=== PATIENT | female | born 1965 | race Caucasian/White ===

== ENCOUNTER 2017-11-22 02:40 | Inpatient (IN) ==
[2017-11-22] MEDS ORDERED: ONDANSETRON HCL/PF 2 MG/ML VIAL IV ONE ×2 (04:55→10:47)
[2017-11-22] MEDS ORDERED: DIATRIZOATE MEGLUMINE, SODIUM 30 ML BTL PO ONE (04:55)
[2017-11-22] MEDS ORDERED: ONDANSETRON HCL/PF 2 MG/ML VIAL ONE (04:57)
[2017-11-22] MEDS ORDERED: BUTORPHANOL TARTRATE 2 MG/ML VIAL IV ONE (05:23)
--- NOTE | 2017-11-22 05:31 | ERNOTE ---
<Mahesh Gutierrez - Last Filed: 11/22/17 08:43> GI Bleeding/Rectal Pain ER Presenting Symptoms: vomiting blood Time Seen by Provider: 11/22/17 02:50 Source: patient Exam Limitations: no limitations Immunizations: IMMUNIZATION HX Immunizations Up to Date Yes Allergies/Adverse Reactions: Allergies morphine Allergy (Verified 11/22/17 04:11) sertraline [From Zoloft] Allergy (Verified 11/22/17 04:11) Home Medications: HOME MEDICATIONS FLUoxetine HCL [Prozac] 80 mg PO DAILY 11/22/17 [Last Taken Unknown] LORazepam [Ativan] 1 mg PO HS PRN 11/22/17 [Last Taken Unknown] Lisinopril/Hydrochlorothiazide [Lisinopril-Hctz 20-25 mg Tab] 1 tab PO DAILY 10/05 [Last Taken Unknown] Metoprolol Succinate 50 mg PO DAILY 11/22/17 [Last Taken Unknown] Omeprazole 20 mg PO DAILY 11/22/17 [Last Taken Unknown] Narrative: Pt transferred here from [facility] for GI bleed and hypotension. Upon arrival pt is normotensive and has RUQ pain, WBC 19,000 and elevated BUN and Cr. Timing: intermittent Quality/Severity: Present: moderate Nausea/Vomiting: Present: coffee grounds Abdominal Pain: Present: RUQ Rectal Bleeding: Present: none Prior Treament: Reports: recently seen, treated by physician Review of Systems - Review of Systems Constitutional: Absent: recent illness, fever Respiratory: Absent: shortness of breath Cardiology: Absent: chest pain Gastrointestinal/Abdominal: Present: See HPI. Absent: diarrhea, constipation Genitourinary: Present: decreased urinary output Musculoskeletal: Absent: back pain, muscle pain Endocrine: Absent: excessive sweating, flushing Hematologic/Lymphatic: Absent: easy bruising, easy bleeding Medical History (Last Reviewed 11/22/17 @ 05:31 by Mahesh Gutierrez DO) Anxiety Depression GERD (gastroesophageal reflux disease) Hypertension Surgical History: Surgical History (Last Reviewed 11/22/17 @ 05:31 by Mahesh Gutierrez DO) H/O: hysterectomy Hx of adenoidectomy Hx of tonsillectomy Social History: Smoking Status Never smoker Alcohol Use sober Physical Exam - Physical Exam General Appearance: Present: wd/wn, alert, mild distress Head Exam: Present: normal inspection, no evidence of injury Ears, Nose, Throat: Present: normal ENT inspection Neck: Present: normal inspection, nontender, supple Respiratory: Present: no respiratory distress, normal breath sounds, lungs clear Cardiovascular/Chest: Present: regular rate, rhythm, no murmur Gastrointestinal/Abdominal: Present: normal bowel sounds, tenderness - RUQ and epigastric Extremity Exam: Present: non-tender Neurological Exam: Present: alert, oriented, normal mood/affect, no motor/ sensory deficits Skin Exam: Present: normal color, warm/dry ED Progress - Results and Orders Patient's Lab Results:: I have reviewed the patient's lab results. Results and Orders: From [place]; WBC 19.2 k, BUN 49, Cr 4.4 otherwise normal - Vital Signs Patient's Vital Signs:: I have reviewed the patient's vital signs. Vital Signs: Vital Signs 11/22/17 02:41 11/22/17 03:01 11/22/17 03:30 Temperature 36.6 C Pulse Rate 91 88 87 Respiratory Rate 15 14 16 Blood Pressure 119/64 110/68 117/81 O2 Sat by Pulse Oximetry 99 100 99 11/22/17 04:01 Temperature Pulse Rate 85 Respiratory Rate 14 Blood Pressure 121/64 O2 Sat by Pulse Oximetry 99 - Progress/Reassessment Chief Complaint: GI Bleed Progress Note-Subjective: 11/22/17 04:59 Due to code blue and other patients I quickly saw the patient upon arrival but was not able to review the chart from [place] initially. As I reviewed the chart and further examined the patient I felt that the patient should be further evaluated by CT. Due to elevated BUN/Cr I will do CT without IV contrast/ with oral contrast only. 11/22/17 08:[address] Ku and he wants labs rechecked and to speak with Dr. Jerez about the admit and call him back. I will sign over to Dr. Ott - Transfer of Care Physician Sign Out: Mahesh Gutierrez Receiving Physician: Joseph Ott Pending Results: Labs, Physician/consult arrival Expected Disposition: Admit Departure Clinical Impression: Gastrointestinal bleeding Qualifiers: GI bleed type/associated pathology: gastrointestinal hemorrhage with hematemesis Qualified Code(s): K92.0 - Hematemesis - Departure Disposition: Still a patient Condition: Fair Referrals: Nikita Jerez MD [Staff Physician] - <VasquezJoseph turner - Last Filed: 11/22/17 09:55> GI Bleeding/Rectal Pain ER Immunizations: IMMUNIZATION HX Immunizations Up to Date Yes Medical History (Last Reviewed 11/22/17 @ 05:31 by Mahesh Gutierrez DO) Anxiety Depression GERD (gastroesophageal reflux disease) Hypertension Surgical History: Surgical History (Last Reviewed 11/22/17 @ 05:31 by Mahesh Gutierrez DO) H/O: hysterectomy Hx of adenoidectomy Hx of tonsillectomy Social History: Preferred Language Maltese Smoking Status Never smoker Alcohol Use sober ED Progress - Vital Signs Vital Signs: Vital Signs 11/22/17 02:41 11/22/17 03:01 11/22/17 03:30 Temperature 36.6 C Pulse Rate 91 88 87 Respiratory Rate 15 14 16 Blood Pressure 119/64 110/68 117/81 O2 Sat by Pulse Oximetry 99 100 99 11/22/17 04:01 11/22/17 04:35 11/22/17 05:01 Temperature Pulse Rate 85 85 84 Respiratory Rate 14 16 18 Blood Pressure 121/64 118/68 127/73 O2 Sat by Pulse Oximetry 99 97 95 11/22/17 05:42 11/22/17 06:17 11/22/17 06:53 Temperature 36.3 C Pulse Rate 85 88 92 Respiratory Rate 18 22 H 16 Blood Pressure 116/74 96/52 120/65 O2 Sat by Pulse Oximetry 96 95 99 11/22/17 07:47 11/22/17 08:33 11/22/17 09:07 Temperature Pulse Rate 87 90 84 Respiratory Rate 14 16 18 Blood Pressure 105/53 116/67 92/54 O2 Sat by Pulse Oximetry 93 91 L 95 - CT/Ultrasound CT/Ultrasound Narrative: CT abdomen and pelvis reviewed by me Plan - Plan Plan: Patient be admitted to an observation bed and an EGD will be undertaken by Dr. Cruz. Patient be admitted to the services of Dr. Ku.
[2017-11-22] MEDS ORDERED: BUTORPHANOL TARTRATE 2 MG/ML VIAL ONE (05:46)
[2017-11-22] MEDS: NORMAL SALINE 1,000 ML IV ONE ×2 (05:49→14:25)
[2017-11-22] MEDS ORDERED: PROCHLORPERAZINE EDISYLATE 5 MG/ML VIAL IV ONE ×2 (05:58→05:59)
[2017-11-22] MEDS ORDERED: PROCHLORPERAZINE EDISYLATE 5 MG/ML VIAL ONE (05:59)
[2017-11-22 09:03] LABS: Hematocrit 38.6 % (37.0-47.0); Hemoglobin 13.2 gm/dL (12.5-16.0); Mean Cell Volume 84.8 fl (78-100); Mean Corpuscular Hgb Conc 34.2 g/dl (32-36); Mean Platelet Volume 9.6 fl (8-12.5); Neutrophil # 9.9 K/mm3 (1.3-6.0); Neutrophil % 68.3 % (42-75.0); Platelet Count 280 K/mm3 (150-450); Red Blood Count 4.55 M/mm3 (4.2-5.4); Red Cell Distribution Width 13.8 % (11.5-14.0); White Blood Count 14.4 K/mm3 (4.0-10.5)
[2017-11-22] MEDS ORDERED: NORMAL SALINE 1,000 ML IV ONE (09:03)
[2017-11-22 09:11] LABS: Anion Gap 18.6 mmol/L (6.8-13.8); BUN/Creatinine Ratio 11.7 (9.0-21.6); Calcium * 8.1 mg/dL (7.9-10.9); Carbon Dioxide 20.5 mmol/L (24-32.6); Estimated Creat Clear 13.2; Potassium 3.1 mmol/L (3.4-4.6)
[2017-11-22] MEDS ORDERED: PANTOPRAZOLE SODIUM 40 MG in NORMAL SALINE 100 ML IV ONE (09:52)
[2017-11-22] MEDS ORDERED: PANTOPRAZOLE SODIUM 40 MG/100 ML PIGGYBACK IV ONE (10:01)
[2017-11-22] MEDS ORDERED: PANTOPRAZOLE SODIUM 40 MG in NORMAL SALINE 100 ML IV SCH (12:30)
--- NOTE | 2017-11-22 12:43 | HP ---
Chief Complaint - Chief Complaint Date of Service: 11/22/17 Time of Service: 12:22 Chief Complaint: transfer form [facility] for GIB/hypotension History of Present Illness: Josefina De Paz, is a 52-year-old white female, patient of Dr. Key in [place], with past medical history of hypertension, anxiety and depression, gout, who was admitted on 11/22/2017 as a transfer from [facility] in [place] for GI bleed and hypotension. 2 weeks prior to admission the patient started taking indomethacin 3 times a day for one week because of a gouty flareup. 3 days ago she took another indomethacin, as she felt that it was coming back. It went away but she started having diarrhea 2-3 times a day with semi-formed stool. Yesterday the patient started having watery diarrhea blackish in color. She went to the emergency room and passed out. She had an episode of coffee-ground material 1 when she woke up and continue to dry heave. She was given IV fluids for hypertension. She was then transferred here because of unavailability of bed. Her hemoglobin/Hct there was 14.7/44.4 and her BUN/ creatinine was 49/4.4. LFTs were within normal limits. Her H/H here was down to 13.2/36 with a BUN/Cr of 57/4.6. Her WBC went down from 19.2 to 14.4. Her CTS of the abdomne showed an atrophic right kidney , no hydronephrosis, diverticulosis w/o diverticulitis. She was admitted for observation and further treatment. Medical History (Last Updated 11/22/17 @ 11:23 by Trish Madrigal RN) Arthritis Degenerative disc disease, lumbar Gout Raynaud's phenomenon (by history or observed) Anxiety Depression GERD (gastroesophageal reflux disease) Hypertension Surgical History: Surgical History (Last Reviewed 11/22/17 @ 05:31 by Mahesh Gutierrez DO) H/O: hysterectomy Hx of adenoidectomy Hx of tonsillectomy Social History: Patient Lives/Resources Family Utilized Occupation Disabled Preferred Language Occitan Do you have any scientologist or Yes: Hindu cultural preference? Smoking Status Never smoker Have you smoked in the past 12 No months Do you dip or chew tobacco No Alcohol Use sober Immunizations: IMMUNIZATION HX Immunizations Up to Date Yes Allergies/Adverse Reactions: Allergies Allergy/AdvReac Type Severity Reaction Status Date / Time morphine Allergy Verified 11/22/17 04:11 sertraline [From Zoloft] Allergy Verified 11/22/17 04:11 Home Medications: HOME MEDICATIONS FLUoxetine HCL [Prozac] 80 mg PO DAILY 11/22/17 [Last Taken Unknown] LORazepam [Ativan] 1 mg PO HS PRN 11/22/17 [Last Taken Unknown] Lisinopril/Hydrochlorothiazide [Lisinopril-Hctz 20-25 mg Tab] 1 tab PO DAILY 10/05 [Last Taken Unknown] Metoprolol Succinate 50 mg PO DAILY 11/22/17 [Last Taken Unknown] Omeprazole 20 mg PO DAILY 11/22/17 [Last Taken Unknown] Exam - Exam Vital Signs: Vital Signs - Last Taken Temp 36.5 C 11/22/17 11:08 Pulse 86 11/22/17 11:08 Resp 14 11/22/17 11:08 BP 105/65 11/22/17 11:08 Pulse Ox 92 L 11/22/17 11:08 Constitutional: Present: Alert, Oriented x3, Cooperative ENT Exam: Present: hearing grossly normal Eye Exam: bilateral eye: normal inspection, PERRL, EOMI Neck: Present: supple Respiratory: Present: decreased breath sounds, No rales, No wheezing Cardiovascular/Chest: Present: regular rate, rhythm, no JVD, no murmur Abdomen: Present: soft, no rebound tenderness, obese, tender - epigastric area, hypoactive. Absent: guarding Extremity: Present: no pedal edema, no calf tenderness Diagnostic Studies: Abnormal Lab Results 11/22/17 11/22/17 Range/Units 08:57 08:57 WBC 14.4 H (4.0-10.5) K/mm3 Immature Gran # (Auto) 0.06 H (0.000-0.0310) K/mm3 Neutrophils # 9.9 H (1.3-6.0) K/mm3 Monocytes # 1.3 H (0.0-1.0) k/mm3 Potassium 3.1 L (3.4-4.6) mmol/L Chloride 96 L (97-106) mmol/L Carbon Dioxide 20.5 L (24-32.6) mmol/L Anion Gap 18.6 H (6.8-13.8) mmol/L BUN 57 H (3-23) mg/dL Creatinine 4.86 H (0.4-1.4) mg/dL Est GFR (Non-Af Amer) 10 L (60-130) mL/min Random Glucose 127 H (70-110) mg/dL Laboratory Results WBC 14.4 K/mm3 (4.0-10.5) H 11/22/17 08:57 RBC 4.55 M/mm3 (4.2-5.4) 11/22/17 08:57 Hgb 13.2 gm/dL (12.5-16.0) 11/22/17 08:57 Hct 38.6 % (37.0-47.0) 11/22/17 08:57 MCV 84.8 fl (78-100) 11/22/17 08:57 MCH 29.0 pg (27-31) 11/22/17 08:57 MCHC 34.2 g/dl (32-36) 11/22/17 08:57 RDW 13.8 % (11.5-14.0) 11/22/17 08:57 Plt Count 280 K/mm3 (150-450) 11/22/17 08:57 MPV 9.6 fl (8-12.5) 11/22/17 08:57 Immature Gran % (Auto) 0.40 % (0.001-0.429) 11/22/17 08:57 Immature Gran # (Auto) 0.06 K/mm3 (0.000-0.0310) H 11/22/17 08:57 Neutrophils % 68.3 % (42-75.0) 11/22/17 08:57 Lymphocytes % 20.4 % (20-51) 11/22/17 08:57 Monocytes % 8.9 % (0.0-9) 11/22/17 08:57 Eosinophils % 1.5 % (0.0-3.0) 11/22/17 08:57 Basophils % 0.5 % (0.0-1.0) 11/22/17 08:57 Nucleated RBC % 0.0 k/mm3 (0-1) 11/22/17 08:57 Neutrophils # 9.9 K/mm3 (1.3-6.0) H 11/22/17 08:57 Lymphocytes # 2.94 k/mm3 (1.5-3.5) 11/22/17 08:57 Monocytes # 1.3 k/mm3 (0.0-1.0) H 11/22/17 08:57 Eosinophils # 0.2 k/mm3 (0.0-0.7) 11/22/17 08:57 Absolute Basophils 0.1 k/mm3 (0.0-0.1) 11/22/17 08:57 Sodium 132 mmol/L (132-142) 11/22/17 08:57 Plasma Sodium 132 mmol/L (130-142) 11/22/17 08:57 Potassium 3.1 mmol/L (3.4-4.6) L 11/22/17 08:57 Chloride 96 mmol/L (97-106) L 11/22/17 08:57 Carbon Dioxide 20.5 mmol/L (24-32.6) L 11/22/17 08:57 Anion Gap 18.6 mmol/L (6.8-13.8) H 11/22/17 08:57 BUN 57 mg/dL (3-23) H 11/22/17 08:57 Creatinine 4.86 mg/dL (0.4-1.4) H 11/22/17 08:57 Est GFR (Non-Af Amer) 10 mL/min (60-130) L 11/22/17 08:57 BUN/Creatinine Ratio 11.7 (9.0-21.6) 11/22/17 08:57 Random Glucose 127 mg/dL (70-110) H 11/22/17 08:57 Calcium 8.1 mg/dL (7.9-10.9) 11/22/17 08:57 Assessment/Plan - Assessment/Plan (1) Gastrointestinal bleeding Assessment: likely NSAIDS induced. will keep patient NPO, continue with IV protonix, IVF and will monitor H/H. will get surgical consult with Dr. Jerez for possible EGD. Problem: Acute Qualifiers: Qualified Code(s): K92.0 - Hematemesis (2) Hypertension Assessment: will hold BP medications for now. Problem: Acute (3) Anxiety and depression Assessment: on fluoxetine. Problem: Acute (4) GERD (gastroesophageal reflux disease) Assessment: on omeprazole. will hold as she is on IV protonix for now. Problem: Acute (5) Acute on chronic renal failure Assessment: I do not have her previous Bun/Cr but based on her CTS she has an atrophic right kidney which says she has chronic renal disease and some cysts on the left kidney. will get an US. continue with IVF. Problem: Acute
[2017-11-22 13:04] LABS: Hematocrit 35.9 % (37.0-47.0); Hemoglobin 12.2 gm/dL (12.5-16.0)
--- NOTE | 2017-11-22 13:48 | CONS ---
HPI - General Date of Service: 11/22/17 Source: patient, RN/MD, RN notes reviewed Exam Limitations: no limitations - History of Present Illness Initial Comments: She initially was taken by ambulance to the emergency room in [place]. She apparently got weak and passed out. There she vomited some coffee ground material and so was transferred here. She has not vomited since. He recently had a flare of gout and started taking indomethacin 3 times a day for a week. She does have significant heartburn for which she takes omeprazole. She apparently had not been eating or drinking for 3 days. She describes having some cramps in the left lower quadrant and diarrhea but not black or maroon stools. Apparently her heartburn comes back if she doesn't take omeprazole especially depending upon food type. Associated Symptoms: other - Currently she is just tired Allergies/Adverse Reactions: Allergies morphine Allergy (Verified 11/22/17 04:11) sertraline [From Zoloft] Allergy (Verified 11/22/17 04:11) Home Medications: Home Medications Medication Instructions Recorded Last Taken FLUoxetine HCL [Prozac] 80 mg PO DAILY 11/22/17 Unknown LORazepam [Ativan] 1 mg PO HS PRN 11/22/17 Unknown Lisinopril/Hydrochlorothiazide 1 tab PO DAILY 11/22/17 Unknown [Lisinopril-Hctz 20-25 mg Tab] Metoprolol Succinate 50 mg PO DAILY 11/22/17 Unknown Omeprazole 20 mg PO DAILY 11/22/17 Unknown Procedures Application of splint (12/26/99) Other repair of knee (08/21/00) Other repair or plastic operations on bone, tibia and fibula (08/21/00) Review of Systems - Review of Systems Generalized/Overall Review: Present: Weakness, Malaise. Absent: Chills, Fever EENTM: Present: No Symptoms Reported Respiratory: Present: No Symptoms Reported Cardiac: Present: Other - She passed out at home but does not feel weak or lightheaded now Abdominal: Present: Other - She had some cramping left lower quadrant pain and diarrhea Genitourinary: Present: Oliguria Musculoskeletal: Present: Gout Neurological: Present: Other - Tired, she was apparently orthostatic she was taken [place] Skin: Present: No Symptoms Reported Physical Examination - Exam Vital Signs: Vital Signs - Last Taken Temp 36.5 C 11/22/17 11:08 Pulse 86 11/22/17 11:08 Resp 14 11/22/17 11:08 BP 105/65 11/22/17 11:08 Pulse Ox 92 L 11/22/17 11:08 O2 Oxygen Delivery Method Room Air Constitutional: Present: Oriented x3, Cooperative, Somnolent, Morbidly obese ENT Exam: Present: normal ENT inspection Eye Exam: bilateral eye: normal inspection Neck: Present: other - Very short thick neck full range of motion Breasts: Present: Exam deferred Respiratory: Present: no respiratory distress Cardiovascular/Chest: Present: regular rate, rhythm Abdomen: Present: other - She reports epigastric discomfort but no tenderness and no pain with cough Skin Exam: Present: warm/dry Neurologic: Present: detail drafter II-XII nml as tested, no motor/sensory deficits Appearance: Present: appropriate insight Eye contact: Present: cooperative Thoughts: Present: normal thought pattern - Results and Findings: Lab/Microbiology results last 24 hrs: Abnormal/Pending Laboratory Last 24 HRS 11/22/17 11/22/17 11/22/17 12:55 08:57 08:57 WBC 14.4 H Hgb 12.2 L Hct 35.9 L Immature Gran # (Auto) 0.06 H Neutrophils # 9.9 H Monocytes # 1.3 H Potassium 3.1 L Chloride 96 L Carbon Dioxide 20.5 L Anion Gap 18.6 H BUN 57 H Creatinine 4.86 H Est GFR (Non-Af Amer) 10 L Random Glucose 127 H - Assessments/Findings (1) Gastrointestinal bleeding Diagnosis(s): Most likely cause of coffee-ground vomiting is the indomethacin which she has been taking. Her hemoglobin has not dropped significantly. It sounds like her by mouth intake was poor which may have contributed to the orthostatic syncope. Pamphlets on EGD and GERD were given to the patient. The process involved with upper GI endoscopy was explained along with the risks and benefits. It would be useful to scope her today to establish whether this is a generalized gastritis or an ulcer to guide future therapy at biopsy for H. pylori will also be performed. After interactive discussion her questions were answered to her apparent satisfaction and she has given informed consent for EGD with biopsy Problem: Acute Qualifiers: GI bleed type/associated pathology: gastrointestinal hemorrhage with hematemesis Qualified Code(s): K92.0 - Hematemesis
--- NOTE | 2017-11-22 14:01 | PN ---
Progess Note - Interim Date: 11/22/17 Time: 13:59 Narrative: 11/22/17 13:59 Her doctor's office was called and they said that her Cr was 1.4 the last time it was checked a few months back. Will transfer her to acute status.
--- NOTE | 2017-11-22 14:23 | ANES ---
Anesthesia Pre Procedure Eval Vitals/Labs: Last Vital Signs Temp 36.5 C 11/22/17 11:08 Pulse 86 11/22/17 11:08 Resp 14 11/22/17 11:08 BP 105/65 11/22/17 11:08 Pulse Ox 92 L 11/22/17 11:08 HOME MEDICATIONS FLUoxetine HCL [Prozac] 80 mg PO DAILY 11/22/17 [Last Taken Unknown] LORazepam [Ativan] 1 mg PO HS PRN 11/22/17 [Last Taken Unknown] Lisinopril/Hydrochlorothiazide [Lisinopril-Hctz 20-25 mg Tab] 1 tab PO DAILY 10/05 [Last Taken Unknown] Metoprolol Succinate 50 mg PO DAILY 11/22/17 [Last Taken Unknown] Omeprazole 20 mg PO DAILY 11/22/17 [Last Taken Unknown] Allergies/Adverse Reactions: Allergies Allergy/AdvReac Type Severity Reaction Status Date / Time morphine Allergy Verified 11/22/17 04:11 sertraline [From Zoloft] Allergy Verified 11/22/17 04:11 - Planned Procedure Planned Procedure: GI BLEED Medical History (Last Reviewed 11/22/17 @ 14:20 by Joseph Stark CRNA) Arthritis Degenerative disc disease, lumbar Gout Raynaud's phenomenon (by history or observed) Anxiety Depression GERD (gastroesophageal reflux disease) Hypertension Surgical History (Last Reviewed 11/22/17 @ 14:20 by Joseph Stark CRNA) H/O: hysterectomy Hx of adenoidectomy Hx of tonsillectomy - Family Anesthesia History Family History:: no untoward family reactions to anesthesia - Airway/Neck/Teeth Teeth Condition: Intact Mallampatti Score: 3 Thyromental (T-M) distance: > 6 cm Mandibulo Hyoid distance: > 3 cm - Respiratory Respiratory: lungs clear Smoking Status: Never smoker Sleep Apnea currently treated: No - Cardiovascular Patient History - Cardiac/Respiratory: Hypertension Tolerates Activity: Poor Heart Sounds: S1 & S2, Regular - Anesthesia Assessment and Plan ASA Class: III Anesthesia Type Plan: MAC
--- NOTE | 2017-11-22 14:59 | ANES ---
Post Anesthesia Assessment - Vital Signs Vitals: Last Vital Signs Temp 36.5 C 11/22/17 11:08 Pulse 86 11/22/17 11:08 Resp 14 11/22/17 11:08 BP 105/65 11/22/17 11:08 Pulse Ox 92 L 11/22/17 11:08 Airway Patency: Normal - Mental Status Level Of Consciousness: Drowsy - Pain Level Pain Score: 0 - N/V Assessment Nausea/Vomiting Presence: None Dehydration:: No
--- NOTE | 2017-11-22 14:59 | ANES ---
Post Anesthesia Discharge - Transfer of Care Transfer of Care handoff given to nurse: Yes - Discharge to [facility] Discharge to [facility]-no complications/pt stable: Yes - discharged to room 113.
[2017-11-22] MEDS: POTASSIUM CHLORIDE 10 MEQ in NORMAL SALINE 1,000 ML IV SCH (15:18)
--- NOTE | 2017-11-22 16:20 | OR ---
Operative Report - Dictated Report Narrative: Operative Report Date of operation: 11/22/2017 Preoperative diagnosis: Upper GI bleeding Postoperative diagnosis: Severe distal esophagitis, gastropathy (pathology and CLOtest pending) Operation: EGD with biopsies Surgeon: Dr Jerez Anesthesia: JUAN PABLO Stark CRNA Indications for procedure: The patient is a 52-year-old female who vomited coffee ground material. She has had a slight decrease in hemoglobin and was orthostatic when she presented. She has been on indomethacin Findings: Severe distal esophagitis (starting at 20 cm). Gastropathy with fundic gland polyps. Normal duodenum Narrative of procedure: The patient was identified preoperatively, and prior to the administration of anesthetic a multidisciplinary timeout was observed With the patient in the recumbent position, a bite-block was placed, intravenous sedation administered, and the patient's eyes covered with a towel. The flexible fiberoptic gastroscope was advanced into the posterior pharynx which appeared normal. There was crowding of the structures which was relieved by jaw thrust maneuver. The supraglottic larynx appeared normal. The cords appeared normal, moved well, and opposed in the midline. The scope was advanced under direct vision into the proximal esophagus which appeared normal. The proximal esophagus appeared freely distensible with normal mucosa. At approximately 20 cm severe esophagitis with exudate was encountered. The esophagitis was continuous down to the GE junction.. The GE junction appeared normally distensible. The scope was advanced into the stomach which was insufflated with air. There was marked gastric erythema with flecks of coffee- ground material however no eitan ulcerations, neoplastic lesions, or actively bleeding sites were identified. Retroflexed view of the gastric fundus confirmed the verdugo gastritic nature of erythema but revealed no additional lesions. The gastric side of the GE junction junction appeared normal. The pylorus appeared patent. The scope was advanced into the duodenal bulb which appeared normal. The scope was advanced further to the horizontal portion of the duodenum which appeared normal, specifically the villous architecture appeared well preserved and clear bile was present. The scope was slowly withdrawn through the duodenal bulb with confirmation that no active ulcer was present. The scope was withdrawn into the stomach and territory representative biopsies of gastric mucosa obtained for CLOtest and pathology. The biopsy sites were seen to be hemostatic. The insufflated air was removed from the stomach and the scope withdrawn into the distal esophagus which was biopsied. The biopsy site was seen to be hemostatic. The scope was withdrawn from the patient, and the procedure terminated. The patient tolerated the anesthetic and procedure well without complication and was transferred back to her room awake and in stable condition. Reviewed and electronically signed
[2017-11-22] MEDS: SUCRALFATE 1 G/10 ML UDC PO SCH (20:28)
[2017-11-22] MEDS: ACETAMINOPHEN 325 MG TABLET PO PRN (20:28)
[2017-11-22 23:21] LABS: Urine Appearance Clear (CLEAR); Urine Color Yellow
[2017-11-22 23:22] LABS: Urine Bilirubin Negative (NEGATIVE); Urine Ketone Negative (NEGATIVE)
[2017-11-22 23:23] LABS: Urine Blood Negative /ul (NEGATIVE); Urine Nitrite Negative (NEGATIVE); Urine Protein Negative (NEGATIVE); Urine Urobilinogen Normal (NORMAL)
[2017-11-22 23:25] LABS: Urine Bacteria None Seen; Urine RBC None Seen /hpf (0-5); Urine WBC None Seen /hpf (0-5)
[2017-11-23] MEDS ORDERED: METOPROLOL SUCCINATE 50 MG TABLET.SA PO ONE (00:13)
[2017-11-23] MEDS: FLUoxetine HCL 20 MG CAPSULE PO SCH ×2 (00:33→09:50)
[2017-11-23] MEDS ORDERED: oxyCODONE HCL/ACETAMINOPHEN 1 TAB TABLET PO ONE (01:25)
[2017-11-23] MEDS: POTASSIUM CHLORIDE 10 MEQ in NORMAL SALINE 1,000 ML IV SCH ×3 (01:50→23:47)
[2017-11-23 05:28] LABS: Hematocrit 34.9 % (37.0-47.0); Hemoglobin 11.9 gm/dL (12.5-16.0); Mean Cell Volume 86.8 fl (78-100); Mean Corpuscular Hemoglobin 29.6 pg (27-31); Mean Corpuscular Hgb Conc 34.1 g/dl (32-36); Mean Platelet Volume 9.5 fl (8-12.5); Neutrophil # 8.9 K/mm3 (1.3-6.0); Neutrophil % 72.2 % (42-75.0); Platelet Count 259 K/mm3 (150-450); Red Blood Count 4.02 M/mm3 (4.2-5.4); Red Cell Distribution Width 13.9 % (11.5-14.0); White Blood Count 12.4 K/mm3 (4.0-10.5)
[2017-11-23 05:42] LABS: Anion Gap 16.7 mmol/L (6.8-13.8); BUN/Creatinine Ratio 15.2 (9.0-21.6); Bilirubin, Total 0.7 mg/dL (0.0-1.1); Ca. Corrected For Albumin 8.1 mg/dL (8.4-10.2); Calcium * 7.6 mg/dL (7.9-10.9); Carbon Dioxide 18.8 mmol/L (24-32.6); Potassium 3.5 mmol/L (3.4-4.6); Total Protein 6.6 gm/dL (6.2-8.2)
[2017-11-23] MEDS ORDERED: HYDROmorphone HCL 2 MG/ML VIAL IV PRN (07:04)
--- NOTE | 2017-11-23 07:14 | PN ---
Subjective - Date and Time Seen Date: 11/23/17 Time: 07:05 Subjective Narrative: Patient was seen this morning with reports of epigastric pain. She stated it feels like alot of air moving around and gives her a sharp stab. She refused pain medication overnight.She is tolerating CLD well and anticipating getting Dilaudid for discomfort. She is S/P EGD and biopsies:Severe distal esophagitis, gastropathy (pathology and CLOtest pending). pt stated the carafate helped her overnight. Objective - Review of Systems Generalized/Overall Review: Reports: No Symptoms Reported EENTM: Reports: No Symptoms Reported Respiratory: Reports: No Symptoms Reported Cardiac: Reports: No Symptoms Reported Abdominal: Reports: Abdominal Pain, Other - epigastic discomfort Genitourinary Symptoms: Reports: No Symptoms Reported Musculoskeletal Complaints: Reports: No Symptoms Reported Neurological: Reports: No Symptoms Reported Skin: Reports: No Symptoms Reported Endocrine: Reports: No Symptoms Reported - Vitals Vitals: Last Vital Signs Temp 36.6 C 11/23/17 06:00 Pulse 77 11/23/17 06:00 Resp 18 11/23/17 06:00 BP 111/66 11/23/17 06:00 Pulse Ox 98 11/23/17 06:00 - Abnormal Lab Findings Abnormal Lab Findings: Abnormal Lab Results 11/22/17 11/22/17 11/22/17 Range/Units 08:57 08:57 12:55 WBC 14.4 H (4.0-10.5) K/mm3 RBC (4.2-5.4) M/mm3 Hgb 12.2 L (12.5-16.0) gm/dL Hct 35.9 L (37.0-47.0) % Immature Gran # (Auto) 0.06 H (0.000-0.0310) K/mm3 Lymphocytes % (20-51) % Eosinophils % (0.0-3.0) % Neutrophils # 9.9 H (1.3-6.0) K/mm3 Monocytes # 1.3 H (0.0-1.0) k/mm3 Potassium 3.1 L (3.4-4.6) mmol/L Chloride 96 L (97-106) mmol/L Carbon Dioxide 20.5 L (24-32.6) mmol/L Anion Gap 18.6 H (6.8-13.8) mmol/L BUN 57 H (3-23) mg/dL Creatinine 4.86 H (0.4-1.4) mg/dL Est GFR (Non-Af Amer) 10 L (60-130) mL/min Random Glucose 127 H (70-110) mg/dL Calcium (7.9-10.9) mg/dL Calcium Adj for Albumin (8.4-10.2) mg/dL ALT (19-67) U/L Albumin (3.4-5.0) gm/dl 11/23/17 11/23/17 Range/Units 05:16 05:22 WBC 12.4 H (4.0-10.5) K/mm3 RBC 4.02 L (4.2-5.4) M/mm3 Hgb 11.9 L (12.5-16.0) gm/dL Hct 34.9 L (37.0-47.0) % Immature Gran # (Auto) 0.05 H (0.000-0.0310) K/mm3 Lymphocytes % 16.5 L (20-51) % Eosinophils % 3.3 H (0.0-3.0) % Neutrophils # 8.9 H (1.3-6.0) K/mm3 Monocytes # (0.0-1.0) k/mm3 Potassium (3.4-4.6) mmol/L Chloride (97-106) mmol/L Carbon Dioxide 18.8 L (24-32.6) mmol/L Anion Gap 16.7 H (6.8-13.8) mmol/L BUN 46 H (3-23) mg/dL Creatinine 3.02 H D (0.4-1.4) mg/dL Est GFR (Non-Af Amer) 17 L D (60-130) mL/min Random Glucose (70-110) mg/dL Calcium 7.6 L (7.9-10.9) mg/dL Calcium Adj for Albumin 8.1 L (8.4-10.2) mg/dL ALT 18 L (19-67) U/L Albumin 3.0 L (3.4-5.0) gm/dl - Exam Constitutional: Present: Alert, Oriented x3, Cooperative, No distress, Morbidly obese ENT Exam: Present: hearing grossly normal Neck: Present: non-tender, full range of motion Breasts: Present: Exam deferred Respiratory: Present: chest non-tender, lungs clear, normal breath sounds, decreased breath sounds Cardiovascular/Chest: Present: normal peripheral pulses, regular rate, rhythm, no chest tenderness, no edema, no gallop Abdomen: Present: Normal bowel sounds, soft, nondistended, no rebound tenderness , obese /Rectal: Present: Exam deferred Extremity: Present: normal range of motion, non-tender, no calf tenderness Skin Exam: Present: warm/dry Neurologic: Present: normal mood/affect, oriented x 3 Appearance: Present: appropriate appearance Thoughts: Present: normal thought pattern, no apparent hallucination Assessment/Plan Plan Narrative: Esophagitis She is S/P EGD and biopY:Severe distal esophagitis, gastropathy (pathology and CLOtest pending) Continue with Carafate and protonic Pt tolerating CLD well Dilaudid for discomfort Hypertension Continue with Toprol XL Monitor vital signs Acute on chronic renal failure On adm Bun/Cre 57/4.86----> Bun/cre 46/3.02 Continue with IVF, strict I/O - Problems/Diagnosis (1) Gastrointestinal bleeding Problem: Acute Qualifiers: GI bleed type/associated pathology: gastrointestinal hemorrhage with hematemesis Qualified Code(s): K92.0 - Hematemesis (2) Hypertension Problem: Acute (3) Anxiety and depression Problem: Acute (4) GERD (gastroesophageal reflux disease) Problem: Acute (5) Acute on chronic renal failure Problem: Acute Qualifiers: Chronic kidney disease stage: stage 5, not on chronic dialysis (6) Esophagitis Problem: Acute
[2017-11-23] MEDS: PANTOPRAZOLE SODIUM 40 MG in NORMAL SALINE 100 ML IV SCH (09:49)
[2017-11-23] MEDS: SUCRALFATE 1 G/10 ML UDC PO SCH ×4 (09:49→21:35)
[2017-11-23] MEDS: METOPROLOL SUCCINATE 50 MG TABLET.SA PO SCH (09:50)
[2017-11-23] MEDS: ACETAMINOPHEN 325 MG TABLET PO PRN (23:46)
[2017-11-24 05:27] LABS: Hematocrit 33.3 % (37.0-47.0); Hemoglobin 11.1 gm/dL (12.5-16.0); Mean Cell Volume 86.9 fl (78-100); Mean Corpuscular Hgb Conc 33.3 g/dl (32-36); Mean Platelet Volume 9.6 fl (8-12.5); Neutrophil # 5.5 K/mm3 (1.3-6.0); Neutrophil % 59.9 % (42-75.0); Platelet Count 222 K/mm3 (150-450); Red Blood Count 3.83 M/mm3 (4.2-5.4); Red Cell Distribution Width 14.1 % (11.5-14.0); White Blood Count 9.2 K/mm3 (4.0-10.5)
[2017-11-24 05:43] LABS: Albumin * 2.6 gm/dl (3.4-5.0); Anion Gap 16.3 mmol/L (6.8-13.8); BUN/Creatinine Ratio 15.7 (9.0-21.6); Bilirubin, Total 0.4 mg/dL (0.0-1.1); Ca. Corrected For Albumin 8.4 mg/dL (8.4-10.2); Calcium * 7.6 mg/dL (7.9-10.9); Carbon Dioxide 20.3 mmol/L (24-32.6); Potassium 3.6 mmol/L (3.4-4.6); Total Protein 6.1 gm/dL (6.2-8.2)
--- NOTE | 2017-11-24 06:56 | DS ---
(1) Gastrointestinal bleeding Problem: Acute Qualifiers: GI bleed type/associated pathology: gastrointestinal hemorrhage with hematemesis Qualified Code(s): K92.0 - Hematemesis (2) Hypertension Problem: Acute (3) Anxiety and depression Problem: Acute (4) GERD (gastroesophageal reflux disease) Problem: Acute (5) Acute on chronic renal failure Problem: Acute Qualifiers: Chronic kidney disease stage: stage 5, not on chronic dialysis (6) Esophagitis Problem: Acute Description of Stay: Date of Admission 11/22/2017 Date of Discharge 11/24/2017 Hospital Course Miss. Josefina De Paz, is a 52-year-old white female, patient of Dr. Key in [place], with past medical history of hypertension, anxiety and depression, gout, who was admitted on 11/22/2017 as a transfer from [facility] in [place] for GI bleed and hypotension. 2 weeks prior to admission the patient started taking indomethacin 3 times a day for one week because of a gouty flareup. 3 days prior to this adm she took another indomethacin, as she felt that it was coming back. It went away but she started having diarrhea 2-3 times a day with semi-formed stool. Yesterday the patient started having watery diarrhea blackish in color. She went to the emergency room and passed out. She had an episode of coffee-ground material 1 when she woke up and continue to dry heave. She was given IV fluids for hypertension. She was then transferred here because of unavailability of bed. Her hemoglobin/Hct there was 14.7/44.4 and her BUN/creatinine was 49/4.4. LFTs were within normal limits. Her H/H here was down to 13.2/36 with a BUN/Cr of 57/4.6. Her WBC went down from 19.2 to 14.4. Her CTS of the abdomen showed an atrophic right kidney , no hydronephrosis, diverticulosis w/o diverticulitis. During this adm she was treated with IVF and 11/23/2017 S/P EGD with biopsy: Severe distal esophagitis, gastropathy ( Pathology CLOtest final negative) She will continue with Omeprazole and carafate upon discharge. She had ARF on CRF due to prerenal (hypotension). Today her Cr is down to 1.85 from 4+. will encourage oral intake.Follow up with PCP in 3-7 days. Procedures Performed: see notes below - 11/23/2017 S/P EGD with biopsy: Severe distal esophagitis, gastropathy List Procedures: 11/23/2017 S/P EGD with biopsy: Severe distal esophagitis, gastropathy Results and Findings: Lab Pending Results 11/22/17 11/22/17 11/22/17 08:57 08:57 12:55 WBC 14.4 H RBC 4.55 Hgb 13.2 12.2 L Hct 38.6 35.9 L MCV 84.8 MCH 29.0 MCHC 34.2 RDW 13.8 Plt Count 280 MPV 9.6 Immature Gran % (Auto) 0.40 Immature Gran # (Auto) 0.06 H Neutrophils % 68.3 Lymphocytes % 20.4 Monocytes % 8.9 Eosinophils % 1.5 Basophils % 0.5 Nucleated RBC % 0.0 Neutrophils # 9.9 H Lymphocytes # 2.94 Monocytes # 1.3 H Eosinophils # 0.2 Absolute Basophils 0.1 Sodium 132 Plasma Sodium 132 Potassium 3.1 L Chloride 96 L Carbon Dioxide 20.5 L Anion Gap 18.6 H BUN 57 H Creatinine 4.86 H Est GFR (Non-Af Amer) 10 L BUN/Creatinine Ratio 11.7 Random Glucose 127 H Calcium 8.1 Calcium Adj for Albumin Total Bilirubin AST ALT Alkaline Phosphatase Total Protein Albumin Urine Color Urine Appearance Urine pH Ur Specific [place] Urine Protein Urine Glucose (UA) Urine Ketones Urine Blood Urine Nitrate Urine Bilirubin Urine Urobilinogen Ur Leukocyte Esterase Urine RBC Urine WBC Ur Epithelial Cells Urine Bacteria 11/22/17 11/23/17 11/23/17 22:40 05:16 05:22 WBC 12.4 H RBC 4.02 L Hgb 11.9 L Hct 34.9 L MCV 86.8 MCH 29.6 MCHC 34.1 RDW 13.9 Plt Count 259 MPV 9.5 Immature Gran % (Auto) 0.40 Immature Gran # (Auto) 0.05 H Neutrophils % 72.2 Lymphocytes % 16.5 L Monocytes % 7.3 Eosinophils % 3.3 H Basophils % 0.3 Nucleated RBC % 0.0 Neutrophils # 8.9 H Lymphocytes # 2.04 Monocytes # 0.9 Eosinophils # 0.4 Absolute Basophils 0.0 Sodium 137 Plasma Sodium 137 Potassium 3.5 Chloride 105 Carbon Dioxide 18.8 L Anion Gap 16.7 H BUN 46 H Creatinine 3.02 H D Est GFR (Non-Af Amer) 17 L D BUN/Creatinine Ratio 15.2 Random Glucose 98 Calcium 7.6 L Calcium Adj for Albumin 8.1 L Total Bilirubin 0.7 AST 19 ALT 18 L Alkaline Phosphatase 103 Total Protein 6.6 Albumin 3.0 L Urine Color Yellow Urine Appearance Clear Urine pH 6.0 Ur Specific [place] 1.020 Urine Protein Negative Urine Glucose (UA) Negative Urine Ketones Negative Urine Blood Negative Urine Nitrate Negative Urine Bilirubin Negative Urine Urobilinogen Normal Ur Leukocyte Esterase Negative Urine RBC None seen Urine WBC None seen Ur Epithelial Cells None seen Urine Bacteria None seen 11/24/17 11/24/17 05:20 05:20 WBC 9.2 D RBC 3.83 L Hgb 11.1 L Hct 33.3 L MCV 86.9 MCH 29.0 MCHC 33.3 RDW 14.1 H Plt Count 222 MPV 9.6 Immature Gran % (Auto) 0.30 Immature Gran # (Auto) 0.03 Neutrophils % 59.9 Lymphocytes % 25.5 Monocytes % 8.4 Eosinophils % 5.5 H Basophils % 0.4 Nucleated RBC % 0.0 Neutrophils # 5.5 Lymphocytes # 2.34 Monocytes # 0.8 Eosinophils # 0.5 Absolute Basophils 0.0 Sodium 142 Plasma Sodium 142 Potassium 3.6 Chloride 109 H Carbon Dioxide 20.3 L Anion Gap 16.3 H BUN 29 H Creatinine 1.85 H D Est GFR (Non-Af Amer) 30 L D BUN/Creatinine Ratio 15.7 Random Glucose 99 Calcium 7.6 L Calcium Adj for Albumin 8.4 Total Bilirubin 0.4 AST 17 ALT 17 L Alkaline Phosphatase 92 Total Protein 6.1 L Albumin 2.6 L Urine Color Urine Appearance Urine pH Ur Specific [place] Urine Protein Urine Glucose (UA) Urine Ketones Urine Blood Urine Nitrate Urine Bilirubin Urine Urobilinogen Ur Leukocyte Esterase Urine RBC Urine WBC Ur Epithelial Cells Urine Bacteria Discharge Location: Home Disposition: Home self-care Condition: Fair Discharge Activity: Activity as tolerated Discharge Diet: Low fat/chol, Mech soft Prescriptions (Any new or edited meds): Sucralfate [Carafate Suspension] 1 g PO QID 30 Days udc Complete Home Medications List: Complete Home Medication List: FLUoxetine HCL [Prozac] 80 mg PO DAILY 11/22/17 LORazepam [Ativan] 1 mg PO HS PRN 11/22/17 Lisinopril/Hydrochlorothiazide [Lisinopril-Hctz 20-25 mg Tab] 1 tab PO DAILY 10/05 Metoprolol Succinate 50 mg PO DAILY 11/22/17 Omeprazole 20 mg PO DAILY 11/22/17 Acetaminophen [Tylenol] 650 mg PO Q6H PRN tablet 11/24/17 Sucralfate [Carafate Suspension] 1 g PO QID [address] [facility] [place] 11/24/17
--- NOTE | 2017-11-24 08:46 | PN ---
Progess Note - Interim Date: 11/24/17 Time: 08:43 Narrative: 11/24/17 08:43 Will progress to full liquids diet. if tolerated will discharge after lunch. She will progress her diet as tolerated. She was told to stay of NSAIDS especially Indomethacin. If gets gout flare up , she was told that she will need likely Prednisone. She will need to stay on a low purine diet and bland diet. 11/24/17 11:40 Per patient's sister she tried to take her life by overdosing on her metoprolol. The patient says she took about "26 pills" of 50 mg metoprolol around 1:30 a.m. . The patient was transferred to [facility] for a one to one care. IVF boluses given for SBP in the 80's. HR ranges from 45 -50's, asymptomatic. She says that she just lost her only alcoholism worker and who is like a son to her - her dog. She accidentally ran over the dog and she can still feel the thud when she went over it. She starts crying when relating this story. She also had a run in with the law in 2015 that is drug related and missed her court hearing recently. We got in touch with [facility] but they will start talking to her when she is medically stable and cleared. Poison control is being contacted. Her discharge summary will serve as my progress notes for today. 11/24/17 14:58 Poison control recommended to start her on NaHCO3 bolus and drip for her widened QT interval and EKG finding. They also recommended high dose Insulin drip to stabilize cardiac contractility with Glucose infusion. Her BAG shows Respiratory alkalosis with Non AG Metabolic acidosis. Will get urine for electolytes to rule RTA as she is hyperchloremic.
[2017-11-24] MEDS: POTASSIUM CHLORIDE 10 MEQ in NORMAL SALINE 1,000 ML IV SCH ×2 (09:31→16:56)
[2017-11-24] MEDS: NORMAL SALINE 250 ML IV PRN ×2 (10:16→10:31)
[2017-11-24] MEDS ORDERED: NORMAL SALINE 1,000 ML IV PRN (10:29)
[2017-11-24] MEDS: NORMAL SALINE 1,000 ML IV PRN ×3 (10:45→20:28)
[2017-11-24 10:48] LABS: Hematocrit 33.5 % (37.0-47.0); Hemoglobin 11.1 gm/dL (12.5-16.0); Mean Cell Volume 87.9 fl (78-100); Mean Corpuscular Hemoglobin 29.1 pg (27-31); Mean Corpuscular Hgb Conc 33.1 g/dl (32-36); Mean Platelet Volume 9.6 fl (8-12.5); Neutrophil % 60.9 % (42-75.0); Platelet Count 234 K/mm3 (150-450); Red Blood Count 3.81 M/mm3 (4.2-5.4); Red Cell Distribution Width 14.1 % (11.5-14.0); White Blood Count 8.2 K/mm3 (4.0-10.5)
[2017-11-24] MEDS: METOPROLOL SUCCINATE 50 MG TABLET.SA PO SCH (10:57)
[2017-11-24] MEDS: PANTOPRAZOLE SODIUM 40 MG in NORMAL SALINE 100 ML IV SCH (10:59)
[2017-11-24] MEDS: FLUoxetine HCL 20 MG CAPSULE PO SCH (10:59)
[2017-11-24] MEDS: SUCRALFATE 1 G/10 ML UDC PO SCH ×4 (10:59→21:42)
[2017-11-24 11:08] LABS: ALT 19 U/L (19-67); AST 17 U/L (0-48); Acetaminophen * 0.4 mcg/mL (10.0-30.0); Albumin * 2.8 gm/dl (3.4-5.0); Alkaline Phosphatase * 94 U/L (50-170); Anion Gap 13.7 mmol/L (6.8-13.8); BUN/Creatinine Ratio 14.2 (9.0-21.6); Bilirubin, Total 0.4 mg/dL (0.0-1.1); Blood Urea Nitrogen 26 mg/dL (3-23); Ca. Corrected For Albumin 8.2 mg/dL (8.4-10.2); Calcium * 7.6 mg/dL (7.9-10.9); Carbon Dioxide 24.3 mmol/L (24-32.6); Chloride 110 mmol/L (97-106); Glucose * 102 mg/dL (70-110); Salicylate Less than 2.8 mg/dL (2.8-20.0); Sodium 144 mmol/L (132-142); TSH * 1.645 uIU/mL (0.358-3.74); Total Protein 6.2 gm/dL (6.2-8.2); Troponin I Less than 0.017 ng/ml (0.00-0.10)
[2017-11-24] MEDS ORDERED: GLUCAGON,HUMAN RECOMBINANT 1 MG VIAL IV ONE (13:45)
[2017-11-24] MEDS ORDERED: INSULIN REGULAR, HUMAN 100 UNITS in NORMAL SALINE 100 ML IV PRN ×2 (13:46)
[2017-11-24] MEDS ORDERED: SODIUM BICARBONATE IV ONE ×9 (14:30→22:00)
[2017-11-24] MEDS ORDERED: POTASSIUM CHLORIDE IV ONE ×9 (14:30→22:00)
[2017-11-24] MEDS ORDERED: SODIUM BICARBONATE 1 MEQ/ML SYRG IV ONE (14:30)
[2017-11-24] MEDS ORDERED: WATER IV ONE ×11 (14:30→22:00)
[2017-11-24] MEDS ORDERED: DEXTROSE 5% IV ONE ×9 (14:30→22:00)
[2017-11-24] MEDS: WATER IV STA ×6 (14:46→17:35)
[2017-11-24] MEDS: DEXTROSE 5% IV STA ×6 (14:46→17:35)
[2017-11-24] MEDS: POTASSIUM CHLORIDE IV STA ×6 (14:46→17:35)
[2017-11-24] MEDS: SODIUM BICARBONATE IV STA ×6 (14:46→17:35)
[2017-11-24] MEDS ORDERED: DEXTROSE 50%-WATER 50 ML SYRG IV ONE (15:00)
[2017-11-24] MEDS ORDERED: DEXTROSE 50% IV ONE ×2 (15:15→22:00)
[2017-11-24] MEDS ORDERED: NORMAL SALINE 500 ML IV ONE (15:22)
[2017-11-24] MEDS ORDERED: INSULIN REGULAR, HUMAN 100 UNITS/ML VIAL IV ONE ×2 (15:45)
[2017-11-24 16:06] LABS: Urine Appearance Clear (CLEAR); Urine Bilirubin Negative (NEGATIVE); Urine Blood Negative /ul (NEGATIVE); Urine Color Yellow; Urine Ketone Negative (NEGATIVE); Urine Nitrite Negative (NEGATIVE); Urine Protein Negative (NEGATIVE); Urine Urobilinogen Normal (NORMAL)
[2017-11-24 16:10] LABS: Urine Bacteria None Seen; Urine RBC None Seen /hpf (0-5); Urine WBC 0-5 /hpf (0-5)
[2017-11-24 16:13] LABS: Cocaine Ur Negative (NEGATIVE); Urine Barbiturate Negative (NEGATIVE); Urine Benzodiazepines Negative (NEGATIVE); Urine Opiates Negative (NEGATIVE); Urine PCP Negative (NEGATIVE); Urine THC Negative (NEGATIVE)
[2017-11-24 17:06] LABS: Anion Gap 14.9 mmol/L (6.8-13.8); BUN/Creatinine Ratio 14.9 (9.0-21.6); Calcium * 7.7 mg/dL (7.9-10.9); Carbon Dioxide 22.5 mmol/L (24-32.6); Estimated Creat Clear 35.2; Potassium 3.4 mmol/L (3.4-4.6)
[2017-11-24] MEDS ORDERED: DEXTROSE 5 % IN WATER 1,000 ML IV PRN (20:03)
[2017-11-24 20:29] LABS: Calcium * 7.3 mg/dL (7.9-10.9); Carbon Dioxide 22.9 mmol/L (24-32.6); Estimated Creat Clear 37.7; Potassium 3.9 mmol/L (3.4-4.6)
[2017-11-24] MEDS ORDERED: POTASSIUM CHLORIDE 20 MEQ, SODIUM BICARBONATE 150 MEQ in DEXTROSE 5 % IN WATER 1,000 ML IV SCH ×6 (22:15)
[2017-11-24 23:27] LABS: Calcium * 7.7 mg/dL (7.9-10.9); Estimated Creat Clear 42.3
[2017-11-24 23:32] LABS: Anion Gap 12.5 mmol/L (6.8-13.8); Potassium 4.5 mmol/L (3.4-4.6)
--- NOTE | 2017-11-25 00:36 | DS ---
Transfer Discharge Summary - Diagnosis(s)/Problems (1) Gastrointestinal bleeding Problem: Acute (2) Hypertension Problem: Chronic (3) Anxiety and depression Problem: Chronic (4) GERD (gastroesophageal reflux disease) Problem: Acute (5) Acute on chronic renal failure Problem: Acute (6) Esophagitis Problem: Acute (7) Suicide attempt by beta michael overdose Problem: Acute - Course Description of Stay: Pt was seen this morning and discharge home, the attending Doctor was informed that patient had taken 26 tablets of her Metoprolol 50mg in an attempt to take her life.Therefore the Discharge was cancelled.Poison control recommended to start her on NaHCO3 bolus and drip for her widened QT interval and EKG finding. They also recommended high dose Insulin drip to stabilize cardiac contractility with Glucose infusion. Her ABG shows Respiratory alkalosis with Non AG Metabolic acidosis. Will get urine for electolytes to rule RTA as she is hyperchloremic. Her HR remaining around 42-50 bpm, blood pressure gradually improving. She still need additional doses of dextrose 50 and we ran out, plan for transfer to [facility]. Pt was adm for GI bleed, she was treated with IVF and 11/23/2017 S/P EGD with biopsy: Severe distal esophagitis, gastropathy ( Pathology CLOtest final negative) She will continue with Omeprazole and carafate upon discharge. She had ARF on CRF due to prerenal (hypotension). Today her Cr is down to 1.40 from 4+. Procedures Performed: none - Results and Findings Results and Findings: Laboratory Results - last 24 hr 11/24/17 11/24/17 11/24/17 05:20 05:20 10:19 WBC 9.2 D RBC 3.83 L Hgb 11.1 L Hct 33.3 L MCV 86.9 MCH 29.0 MCHC 33.3 RDW 14.1 H Plt Count 222 MPV 9.6 Immature Gran % (Auto) 0.30 Immature Gran # (Auto) 0.03 Neutrophils % 59.9 Lymphocytes % 25.5 Monocytes % 8.4 Eosinophils % 5.5 H Basophils % 0.4 Nucleated RBC % 0.0 Neutrophils # 5.5 Lymphocytes # 2.34 Monocytes # 0.8 Eosinophils # 0.5 Absolute Basophils 0.0 pCO2 pO2 HCO3 Total CO2 Base Excess ABG pH ABG O2 Sat (Measured) Sodium 142 Plasma Sodium 142 Potassium 3.6 Chloride 109 H Carbon Dioxide 20.3 L Anion Gap 16.3 H BUN 29 H Creatinine 1.85 H D Est GFR (Non-Af Amer) 30 L D BUN/Creatinine Ratio 15.7 Random Glucose 99 Calcium 7.6 L Calcium Adj for Albumin 8.4 Magnesium Total Bilirubin 0.4 AST 17 ALT 17 L Alkaline Phosphatase 92 Troponin I Total Protein 6.1 L Albumin 2.6 L TSH Urine Color Urine Appearance Urine pH Ur Specific Lawrence Urine Protein Urine Glucose (UA) Urine Ketones Urine Blood Urine Nitrate Urine Bilirubin Urine Urobilinogen Ur Leukocyte Esterase Urine RBC Urine WBC Ur Epithelial Cells Urine Bacteria Urine Culture Comments Ur Random Creatinine Ur Random Sodium Ur Random Potassium Salicylates Urine Opiates Screen Negative Acetaminophen Barbiturate Screen Negative Ur Phencyclidine Scrn Negative Urine Amphetamine Positive H U Benzodiazepines Scrn Negative Urine Cocaine Screen Negative Urine Marijuana (THC) Negative Ethyl Alcohol 11/24/17 11/24/17 11/24/17 10:43 10:43 10:43 WBC 8.2 RBC 3.81 L Hgb 11.1 L Hct 33.5 L MCV 87.9 MCH 29.1 MCHC 33.1 RDW 14.1 H Plt Count 234 MPV 9.6 Immature Gran % (Auto) 0.20 Immature Gran # (Auto) 0.02 Neutrophils % 60.9 Lymphocytes % 25.0 Monocytes % 8.3 Eosinophils % 5.1 H Basophils % 0.5 Nucleated RBC % 0.0 Neutrophils # 5.0 Lymphocytes # 2.04 Monocytes # 0.7 Eosinophils # 0.4 Absolute Basophils 0.0 pCO2 pO2 HCO3 Total CO2 Base Excess ABG pH ABG O2 Sat (Measured) Sodium 144 H Plasma Sodium 144 H Potassium 4.0 Chloride 110 H Carbon Dioxide 24.3 Anion Gap 13.7 BUN 26 H Creatinine 1.83 H Est GFR (Non-Af Amer) 31 L BUN/Creatinine Ratio 14.2 Random Glucose 102 Calcium 7.6 L Calcium Adj for Albumin 8.2 L Magnesium 1.3 Total Bilirubin 0.4 AST 17 ALT 19 Alkaline Phosphatase 94 Troponin I Less than 0.017 Total Protein 6.2 Albumin 2.8 L TSH 1.645 Urine Color Urine Appearance Urine pH Ur Specific Lawrence Urine Protein Urine Glucose (UA) Urine Ketones Urine Blood Urine Nitrate Urine Bilirubin Urine Urobilinogen Ur Leukocyte Esterase Urine RBC Urine WBC Ur Epithelial Cells Urine Bacteria Urine Culture Comments Ur Random Creatinine Ur Random Sodium Ur Random Potassium Salicylates Less than 2.8 L Urine Opiates Screen Acetaminophen 0.4 L Barbiturate Screen Ur Phencyclidine Scrn Urine Amphetamine U Benzodiazepines Scrn Urine Cocaine Screen Urine Marijuana (THC) Ethyl Alcohol Less than 3.0 11/24/17 11/24/17 11/24/17 13:00 13:20 15:40 WBC RBC Hgb Hct MCV MCH MCHC RDW Plt Count MPV Immature Gran % (Auto) Immature Gran # (Auto) Neutrophils % Lymphocytes % Monocytes % Eosinophils % Basophils % Nucleated RBC % Neutrophils # Lymphocytes # Monocytes # Eosinophils # Absolute Basophils pCO2 46.9 H 23.3 L pO2 18.0 L* 195.6 H HCO3 18.4 L 14.6 L Total CO2 19.8 15.4 L Base Excess -9.2 L -8.4 L ABG pH 7.21 L 7.42 ABG O2 Sat (Measured) 19.9 L 99.4 H Sodium Plasma Sodium Potassium Chloride Carbon Dioxide Anion Gap BUN Creatinine Est GFR (Non-Af Amer) BUN/Creatinine Ratio Random Glucose Calcium Calcium Adj for Albumin Magnesium Total Bilirubin AST ALT Alkaline Phosphatase Troponin I Total Protein Albumin TSH Urine Color Yellow Urine Appearance Clear Urine pH 6.0 Ur Specific Lawrence 1.020 Urine Protein Negative Urine Glucose (UA) 250 H Urine Ketones Negative Urine Blood Negative Urine Nitrate Negative Urine Bilirubin Negative Urine Urobilinogen Normal Ur Leukocyte Esterase Negative Urine RBC None seen Urine WBC 0-5 Ur Epithelial Cells 0-5 Urine Bacteria None seen Urine Culture Comments No culture indicated Ur Random Creatinine Ur Random Sodium Ur Random Potassium Salicylates Urine Opiates Screen Acetaminophen Barbiturate Screen Ur Phencyclidine Scrn Urine Amphetamine U Benzodiazepines Scrn Urine Cocaine Screen Urine Marijuana (THC) Ethyl Alcohol 11/24/17 11/24/17 11/24/17 15:40 15:40 16:52 WBC RBC Hgb Hct MCV MCH MCHC RDW Plt Count MPV Immature Gran % (Auto) Immature Gran # (Auto) Neutrophils % Lymphocytes % Monocytes % Eosinophils % Basophils % Nucleated RBC % Neutrophils # Lymphocytes # Monocytes # Eosinophils # Absolute Basophils pCO2 pO2 HCO3 Total CO2 Base Excess ABG pH ABG O2 Sat (Measured) Sodium 145 H Plasma Sodium 145 H Potassium 3.4 Chloride 111 H Carbon Dioxide 22.5 L Anion Gap 14.9 H BUN 25 H Creatinine 1.68 H Est GFR (Non-Af Amer) 34 L BUN/Creatinine Ratio 14.9 Random Glucose 89 Calcium 7.7 L Calcium Adj for Albumin Magnesium Total Bilirubin AST ALT Alkaline Phosphatase Troponin I Total Protein Albumin TSH Urine Color Urine Appearance Urine pH Ur Specific Lawrence Urine Protein Urine Glucose (UA) Urine Ketones Urine Blood Urine Nitrate Urine Bilirubin Urine Urobilinogen Ur Leukocyte Esterase Urine RBC Urine WBC Ur Epithelial Cells Urine Bacteria Urine Culture Comments Ur Random Creatinine 87.9 Ur Random Sodium 88 Ur Random Potassium 22.8 Salicylates Urine Opiates Screen Acetaminophen Barbiturate Screen Ur Phencyclidine Scrn Urine Amphetamine U Benzodiazepines Scrn Urine Cocaine Screen Urine Marijuana (THC) Ethyl Alcohol 11/24/17 11/24/17 20:10 23:00 WBC RBC Hgb Hct MCV MCH MCHC RDW Plt Count MPV Immature Gran % (Auto) Immature Gran # (Auto) Neutrophils % Lymphocytes % Monocytes % Eosinophils % Basophils % Nucleated RBC % Neutrophils # Lymphocytes # Monocytes # Eosinophils # Absolute Basophils pCO2 pO2 HCO3 Total CO2 Base Excess ABG pH ABG O2 Sat (Measured) Sodium 142 135 Plasma Sodium 142 135 Potassium 3.9 4.5 Chloride 108 H 106 Carbon Dioxide 22.9 L 21.0 L Anion Gap 15.0 H 12.5 BUN 22 21 Creatinine 1.57 H 1.40 Est GFR (Non-Af Amer) 37 L 42 L BUN/Creatinine Ratio 14.0 15.0 Random Glucose 103 103 Calcium 7.3 L 7.7 L Calcium Adj for Albumin Magnesium Total Bilirubin AST ALT Alkaline Phosphatase Troponin I Total Protein Albumin TSH Urine Color Urine Appearance Urine pH Ur Specific Lawrence Urine Protein Urine Glucose (UA) Urine Ketones Urine Blood Urine Nitrate Urine Bilirubin Urine Urobilinogen Ur Leukocyte Esterase Urine RBC Urine WBC Ur Epithelial Cells Urine Bacteria Urine Culture Comments Ur Random Creatinine Ur Random Sodium Ur Random Potassium Salicylates Urine Opiates Screen Acetaminophen Barbiturate Screen Ur Phencyclidine Scrn Urine Amphetamine U Benzodiazepines Scrn Urine Cocaine Screen Urine Marijuana (THC) Ethyl Alcohol - Medications Medications: Active Medications Acetaminophen (Tylenol) 650 mg PO Q6H PRN PRN Reason: Mild pain (pain scale 1-3) Stop: 12/22/17 20:13 Last Admin: 11/23/17 23:46 Dose: 650 mg Fluoxetine HCl (Prozac) 80 mg PO DAILY LIDIA Stop: 12/23/17 00:31 Last Admin: 11/24/17 10:59 Dose: 80 mg Hydromorphone HCl (Dilaudid) 1 mg IV Q8H PRN PRN Reason: Severe Pain (pain scale 7-10) Stop: 12/23/17 07:05 Last Admin: 11/23/17 07:51 Dose: 1 mg Potassium Chloride 10 meq/ (Sodium Chloride) 1,005 mls @ 100 mls/hr IV .Q10H3M LIDIA Stop: 12/22/17 13:46 Last Admin: 11/24/17 16:56 Dose: Not Given Pantoprazole Sodium 40 mg/ (Sodium Chloride) 100 mls @ 400 mls/hr IV Q24H LIDIA Stop: 12/23/17 09:01 Last Infusion: 11/24/17 11:14 Dose: Infused Sodium Chloride (Sodium Chloride 0.9%) 250 mls @ 999 mls/hr IV .Q16M PRN PRN Reason: HYDRATION Stop: 12/24/17 09:44 Last Infusion: 11/24/17 10:45 Dose: Infused Insulin Human Regular 100 (units/ Sodium Chloride) 101 mls @ 77.97 mls/hr IV TITR PRN; Protocol PRN Reason: Hyperglycemia Stop: 12/24/17 13:47 Last Titration: 11/25/17 00:16 Dose: 0.01 units/kg/hr, 2 mls/hr Dextrose/Water (Dextrose 5%/Water) 1,000 mls @ 100 mls/hr IV .Q10H PRN PRN Reason: HYDRATION Stop: 12/24/17 20:04 Last Infusion: 11/24/17 23:03 Dose: 0 mls/hr Dextrose/Water (Dextrose 50%/Water Syringe) 200 mls @ 37.5 mls/hr IV .Q5H20M ONE Stop: 11/25/17 03:19 Last Admin: 11/24/17 23:03 Dose: 37.5 mls/hr Potassium Chloride 20 meq/Sodium Bicarbonate 150 meq/Dextrose/Water 1,160 mls @ 166 mls/hr IV .Q7H LIDIA Stop: 12/24/17 22:16 Last Admin: 11/24/17 23:33 Dose: 166 mls/hr Metoprolol Succinate (Toprol Xl) 50 mg PO DAILY LIDIA Stop: 12/23/17 09:01 Last Admin: 11/24/17 10:57 Dose: Not Given Sucralfate (Carafate Suspension) 1 g PO QID LIDIA Stop: 12/22/17 21:01 Last Admin: 11/24/17 21:42 Dose: 1 g Discontinued Medications Butorphanol Tartrate (Stadol) 1 mg IV ONCE ONE Stop: 11/22/17 05:24 Last Admin: 11/22/17 05:51 Dose: 1 mg Dextrose/Water (Dextrose 50%/Water Syringe) 100 ml IV ONCE ONE Stop: 11/24/17 15:01 Last Admin: 11/24/17 15:00 Dose: 100 ml Diatrizoate Meglum/Diatrizoate Sod (Gastrografin Solution) 60 ml PO ONCE ONE Stop: 11/22/17 04:56 Last Admin: 11/22/17 04:55 Dose: 60 ml Glucagon (Glucagen) 1 mg IV ONCE ONE Stop: 11/24/17 13:46 Last Admin: 11/24/17 15:16 Dose: 1 mg Sodium Chloride (Sodium Chloride 0.9%) 1,000 mls @ 999 mls/hr IV .Q1H1M ONE Stop: 11/22/17 06:40 Last Infusion: 11/23/17 00:25 Dose: Infused Sodium Chloride (Sodium Chloride 0.9%) 1,000 mls @ 250 mls/hr IV .Q4H ONE Stop: 11/22/17 13:02 Last Infusion: 11/22/17 13:11 Dose: Infused Pantoprazole Sodium 40 mg/ (Sodium Chloride) 100 mls @ 400 mls/hr IV ONCE ONE Stop: 11/22/17 10:06 Last Infusion: 11/22/17 10:27 Dose: Infused Pantoprazole Sodium 40 mg/ (Sodium Chloride) 100 mls @ 400 mls/hr IV Q24H [facility] Stop: 12/22/17 12:31 Last Admin: 11/22/17 15:18 Dose: Not Given Sodium Chloride (Sodium Chloride 0.9%) 1,000 mls @ 125 mls/hr IV .Q8H PRN PRN Reason: HYDRATION Stop: 12/24/17 09:44 Last Infusion: 11/24/17 21:07 Dose: 0 mls/hr Sodium Bicarbonate 150 meq/Potassium Chloride 20 meq/Dextrose/Water 1,160 mls @ 145 mls/hr IV .Q8H STA Stop: 11/24/17 22:29 Last Admin: 11/24/17 17:35 Dose: Not Given Sodium Bicarbonate 150 meq/Potassium Chloride 20 meq/Dextrose/Water 1,000 mls @ 166.667 mls/hr IV .Q6H ONE Stop: 11/24/17 20:59 Last Admin: 11/24/17 14:52 Dose: 166.667 mls/hr Dextrose/Water (Dextrose 50%/Water Syringe) 200 mls @ 37.5 mls/hr IV .Q5H20M ONE Stop: 11/24/17 20:34 Last Infusion: 11/24/17 19:15 Dose: Infused Sodium Chloride (Sodium Chloride 0.9%) 500 mls @ 999 mls/hr IV .Q31M ONE Stop: 11/24/17 15:52 Last Infusion: 11/24/17 15:34 Dose: Infused Insulin Human Regular (Humulin R) 28.5 units IV ONCE ONE Stop: 11/24/17 15:46 Last Admin: 11/24/17 15:42 Dose: 28.5 units Metoprolol Succinate (Toprol Xl) 50 mg PO ONCE ONE Stop: 11/23/17 00:14 Last Admin: 11/23/17 00:28 Dose: 50 mg Ondansetron HCl (Zofran) 4 mg IV ONCE ONE Stop: 11/22/17 04:56 Last Admin: 11/22/17 05:00 Dose: 4 mg Ondansetron HCl (Zofran) 4 mg IV ONCE ONE Stop: 11/22/17 10:48 Last Admin: 11/22/17 10:51 Dose: 4 mg Oxycodone/Acetaminophen (Percocet 5 Mg/325 Mg) 2 tab PO ONCE ONE Stop: 11/23/17 01:26 Last Admin: 11/23/17 01:40 Dose: Not Given Prochlorperazine Edisylate (Compazine) 5 mg IV ONCE ONE Stop: 11/22/17 05:59 Last Admin: 11/22/17 06:00 Dose: 5 mg Prochlorperazine Edisylate (Compazine) 5 mg IV ONCE ONE Stop: 11/22/17 06:00 Last Admin: 11/22/17 06:03 Dose: Not Given Sodium Bicarbonate (Sodium Bicarbonate 8.4% Syringe) 50 meq IV ONCE ONE Stop: 11/24/17 14:31 Last Admin: 11/24/17 14:37 Dose: 50 meq - Disposition Disposition: Short Term Hospital Inpatient Condition: Stable Discharge Date: 11/25/17 Discharge Time: 00:35
[2017-11-25 03:15] VITALS: BP 124/58
== END 2017-11-25 02:36 | disposition short-term general hospital (02) | DRG 378 ==
LOC: MS 02:40 → ER 02:40 → MS 10:39 → SCU 11-24 10:39
PROVIDERS: ADMIT Internal Medicine; ATTEND Internal Medicine
DX: T44.7X2A Poisoning by beta-adrenoreceptor antagonists, intentional self-harm, initial encounter; Z88.6 Allergy status to analgesic agent; N18.5 Chronic kidney disease, stage 5; N17.9 Acute kidney failure, unspecified; E87.2 Acidosis; Y92.230 Patient room in hospital as the place of occurrence of the external cause; K20.9 Esophagitis, unspecified; K31.9 Disease of stomach and duodenum, unspecified; I95.1 Orthostatic hypotension; E87.3 Alkalosis; Z88.8 Allergy status to other drugs, medicaments and biological substances; I12.0 Hypertensive chronic kidney disease with stage 5 chronic kidney disease or end stage renal disease; F32.9 Major depressive disorder, single episode, unspecified; K21.9 Gastro-esophageal reflux disease without esophagitis; K92.2 Gastrointestinal hemorrhage, unspecified
CPT/HCPCS: 36415; 36600; 74176; 76770; 80048; 80053; 80307; 80320; 80329; 81001; 82570; 82803; 83735; 84133; 84300; 84443; 84484; 85014; 85018; 85025; 87081; 88305; 88312; 88313; 93005; 96361; 96365; 96375; 96376; 99284; G0479; G0480; G0481; J2405